=== PATIENT | male | born 1940 | race Caucasian/White ===

== ENCOUNTER → 2017-07-21 07:26 | Outpatient (CLI) | payer MEDICARE, OTHER ==
[~2017-07-21] VITALS: Ht 177.8 cm; Wt 101.4 kg
--- NOTE | ~2017-07-21 | HEMODYNAMI ---
PATIENT:NAIN VALENCIA SR MEDICAL RECORD: [id number] : 44 LOCATION:[facility] ADMISSION DATE: 07/21/17 Generatedon:07/21/201710:25 Patient name: NAIN VALENCIA Patient #: [id number] SSN: : Date of study: 07/21/2017 Page: Of Hemodynamic Procedure Report Patient Data Patient Demographics Procedure consent was obtained First Name: NAIN Gender: Male Last Name: ERIK Suffix: [facility] Initial: JENNIFER : 1940 Patient #: [id number] Age: 77 year(s) Race: Unknown Additional ID: [id number] Contact details Address: [address] [place] [address] State: [place] City: [place] Zip code: [address] Admission Admission Data Admission Date: 07/21/2017 Admission Time: 7:26 Height (in.): 63 BSA: 2.03 (m2) Height (cm.): 160.02 BMI: 39.5 (kg/m2) Weight (lbs.): 223 Weight (kg.): 101.15 Lab Results Lab Result Date: 07/21/2017 Lab Result Time: 0:00 Biochemistry Name Units Result Min Max BUN mg/dl 17 --(---*)-- 7 18 Creatinine mg/dl 1.1 --(--*-)-- 0.6 1.3 CBC Name Units Result Min Max Hemoglobin g/dl 11.8 *-(----)-- 13.5 17.5 Procedure Procedure Types Cath Procedure Diagnostic Procedure LHC LHC w/Coronaries Sedation Charges Moderate Sedation up to 15 minutes Procedure Description Procedure Date Procedure Date: 07/21/2017 Procedure Start Time: 10:05 Procedure End Time: 10:22 Procedure Staff Name Function Shmuel Calderon MD Performing Physician Heather Zaragoza RT Monitor Michelle Cai RN Nurse Elma Bates RT Scrub Procedure Data Cath Procedure Fluoroscopy Diagnostic fluoroscopy Total fluoroscopy Time: 3 time: 3 min min Diagnostic fluoroscopy Total fluoroscopy dose: 707 dose: 707 mGy mGy Contrast Material Contrast Material Type Amount (ml) Isovue 300 59 Entry Location Entry Primary Successful Side Size Upsize Upsize Entry Closure Succes sful Closure Location (Fr) 1 (Fr) 2 (Fr) Remarks Device Remarks Femoral Right 5 Fr Exoseal artery Estimated blood loss: 5 ml Diagnostic catheters Device Type Used For End Catheter Placement MULTIPACK JL 4.0 5Fr Left Coronary catheter Angiography MULTIPACK 3DRC 5Fr Right Coronary catheter Angiography MULTIPACK Pigtail 5 Fr LV Angiography catheter DIAGNOSTIC IM 5Fr Multi-vessel catheter ([id number]) Angiography Procedure Complications No complications Procedure Medications Medication Administration Route Dosage Oxygen NC 2 l/min Lidocaine 2% added to field 20 Heparin Flush Bag added to field 2 bags (1000units/500ml NS) 0.9% NaCl I.V. 100 ml/hr Versed I.V. 1 mg Fentanyl I.V. 50 mcg Versed I.V. 1 mg Fentanyl I.V. 50 mcg Hemodynamics Rest BSA: 2.03 (m2) HGB: 11.8 (g/dl) O2 Consumption: Estimated: 232.22 (ml/min) O2 Co nsumption indexed: Estimated:114.39 (ml/min/m) Heart Rate: 69 (bpm) Pressure Samples Time Site Value (mmHg) Purpose Heart Use Rate(bpm) 10:14 LV 115/6,17 Snapshot 57 10:14 AO 123/45(77) Pullback 54 10:14 LV 129/-4,25 Pullback 54 Gradients Valve Time Site 1 Site 2 Mean SEP/DFP Peak To Heart Use (mmHg) (sec/min) Peak Rate (mmHg) (bpm) Aortic 10:14 LV AO 9 19 6 54 129/-4,25 123/45(77) Calculations Valve P-P Mean Valve Index Valve Source Name Gradient Area Flow (cm2) Aortic 6 9 6 9 Snapshots Pre Cath Intra NCS Post Cath Vital Signs Time Heart Resp SPO2 etCO2 NIBP (mmHg) Rhythm Pain Sedation Rate (ipm) (%) (mmHg) Status Level (bpm) 9:46:50 54 16 97 0 151/66(112) NSR 0 (11) 10(A) , No pain 9:52:01 52 19 97 0 146/64(116) NSR 0 (11) 10(A) , No pain 9:57:12 50 13 100 41.8 135/67(112) NSR 0 (11) 10(A) , No pain 10:01:32 54 15 95 8.9 143/71(115) NSR 0 (11) 10(A) , No pain 10:05:59 59 13 98 26.9 150/70(116) NSR 0 (11) 9(A) , No pain 10:10:23 62 13 92 44.8 139/77(115) NSR 0 (11) 9(A) , No pain 10:14:47 54 13 95 24.6 127/62(114) NSR 0 (11) 9(A) , No pain 10:19:09 54 15 95 24.6 124/63(103) NSR 0 (11) 10(A) , No pain Medications Time Medication Route Dose Verified Delivered Reason Notes Effe ctiveness by by 9:55:59 Oxygen NC 2 Shmuel Buffie used for l/min Kvng Cai RN procedure 9:56:07 Lidocaine 2% added 20ml Shmuel Shmuel for local to vial Kvng Calderon MD anesthetic field 9:56:14 Heparin Flush added 2 Shmuel Shmuel used for Bag to bags Kvng Calderon MD procedure (1000units/500ml field NS) 9:56:22 0.9% NaCl I.V. 100 Shmuel Buffie Per ml/hr Kvng Cai RN physician 10:03:39 Versed I.V. 1 mg Shmuel Buffie for Kvng Cai RN sedation 10:03:46 Fentanyl I.V. 50 Shmuel Buffie for mcg Kvng Cia RN sedation 10:05:49 Versed I.V. 1 mg Shmuel Buffie for Kvng Cai RN sedation 10:05:53 Fentanyl I.V. 50 Shmuel Buffie for mcg Kvng Cai RN sedation Procedure Log Time Note 9:24:20 Patient Height : 63 inches 9:24:27 Patient Weight : 223 lbs 9:24:49 Diagnostic Cath status Elective 9:24:50 Heather Zaragoza RT(R) sent for patient. Start room use. 9:24:52 Time tracking: Regular hours (M-F 7:00 - 5:00) 9:24:57 Plan of Care:Hemodynamics will remain stable., Cardiac rhythm will remain stable., Comfort level will be maintained., Respiratory function will remain adequate., Patient/ family verbilizes understanding of procedure., Procedure tolerated without complication., Recovers from procedure without complications.. 9:25:05 Patient received from Pre/Post Procedure Room to CCL 2 Alert and oriented. Tansferred to table in Supine position. 9:45:25 Warm blankets applied, and raj hugger turned on for patient comfort. 9:45:25 Correct patient and procedure confirmed by team. 9:45:26 Signed procedure consent form obtained from patient. 9:45:27 ECG and BP/O2 sat monitors applied to patient. 9:45:28 Vital chart was started 9:45:31 Baseline sample Acquired. 9:45:35 Rhythm: sinus rhythm 9:45:38 Full Disclosure recording started 9:45:42 H&P Date Dictated: 07/21/2017 Within 30 days and on chart., H&P Addendum completed by physician on day of procedure. (MUST COMPLETE FOR ALL OUTPATIENTS). 9:45:44 Pre-procedure instructions explained to patient. 9:45:44 Pre-op teaching completed and patient verbalized understanding. 9:45:45 Family in waiting room. 9:45:47 Patient NPO since Midnight. 9:45:49 Is the patient allergic to Iodine/contrast media? No. 9:45:50 Was the patient premedicated? No 9:46:16 Lab Result : Creatinine 1.1 mg/dl 9:46:16 Lab Result : BUN 17 mg/dl 9:46:16 Lab Result : Hemoglobin 11.8 g/dl 9:47:32 Is patient on blood thinner?No 9:47:33 Patient diabetic? Yes. 9:47:34 If diabetic: On Metformin? Yes 9:47:38 If on Metformin: Last Dose? 07/19/2017 9:47:41 Previous problem with sedation/anesthesia? No ? 9:47:42 Snore? Yes 9:47:43 Sleep apnea? Yes 9:47:44 Deviated septum? No 9:47:45 Opens mouth fully? Yes 9:47:46 Sticks out tongue? Yes 9:47:48 Airway obstruction? No ? 9:47:54 Dentures? No ? 9:48:15 Pre procedure: right dorsailis pedis pulse 1+ Palpable, but thready & weak; easily obliterated 9:48:17 Pre procedure: left dorsailis pedis pulse 1+ Palpable, but thready & weak; easily obliterated 9:48:20 Patient pain scale 0/10 ?. 9:48:30 IV left forearm D/C'd due to infiltration. 9:48:44 IV started by Michelle Cai RN inleft forearm with a 20 gauge IV catheter with 0.9% NaCl at KVO. 9:48:47 Lab results completed and on chart. 9:50:25 Right groin area was prepped with chlora-prep and draped in sterile fashion 9:50:26 Alarms reviewed by R. N. 9:50:26 Sharps counted by scrub and verified by R.N. 9:55:59 Oxygen 2 l/min NC was administered by Michelle aCi RN; used for procedure; 9:56:07 Lidocaine 2% 20ml vial added to field was administered by Shmuel Calderon MD; for local anesthetic; 9:56:14 Heparin Flush Bag (1000units/500ml NS) 2 bags added to field was administered by Shmuel Calderon MD; used for procedure; 9:56:22 0.9% NaCl 100 ml/hr I.V. was administered by Michelle Cai RN; Per physician; 9:58:59 Baseline sample Acquired. 10:02:14 Physician arrived 10:02:14 --------ALL STOP TIME OUT------ 10:02:15 Final Timeout: patient, procedure, and site verified with staff and physician. All members of the team are in agreement. 10:02:16 Right groin site verified by team. 10:02:19 Physical assessment completed. ASA score P 2 - A patient with mild systemic disease as per Shmuel Calderon MD. 10:02:23 Sedation plan: IV Moderate Sedation Medication:Versed, Fentanyl 10:02:30 Use device set Femoral Dx 10:02:32 ACIST Syringe (77457) opened to sterile field. 10:02:32 Bag Decanter () opened to sterile field. 10:02:33 Medline Cath Pack ([id number]) opened to sterile field. 10:02:33 DIAGNOSTIC WIRE .035 260cm J wire ([id number]) opened to sterile field. 10:02:34 ACIST Hand Control (47783) opened to sterile field. 10:02:35 ACIST Manifold (99920) opened to sterile field. 10:02:35 DIAGNOSTIC Multipack 5Fr catheter set ([id number]) opened to sterile field. 10:02:36 Tegaderm 4 x 4 (1626W) opened to sterile field. 10:02:38 SHEATH Prelude 5Fr 0.035 ([id number]-98-035) opened to sterile field. 10:03:39 Versed 1 mg I.V. was administered by Michelle Cai RN; for sedation; 10:03:46 Fentanyl 50 mcg I.V. was administered by Michelle Cai RN; for sedation; 10:04:55 Procedure started. 10:05:04 Local anesthetic to right femoral artery with Lidocaine 2% by Shmuel Calderon MD.INITIAL ACCESS ONLY 10:05:49 Versed 1 mg I.V. was administered by Michelle Cai RN; for sedation; 10:05:53 Fentanyl 50 mcg I.V. was administered by Michelle Cai RN; for sedation; 10:06:27 A 5 Fr sheath was inserted into the Right Femoral artery 10:06:32 A MULTIPACK JL 4.0 5Fr catheter was advanced over the wire and used for Left Coronary Angiography. 10:06:34 Zero performed for pressure channel P1 10:08:12 LCA angiography performed. 10:08:15 Injector settings: Ml/sec: 3, Volume: 6, 10:09:26 Catheter removed. 10:09:31 A MULTIPACK 3DRC 5Fr catheter was advanced over the wire and used for Right Coronary Angiography. 10:12:44 RCA angiography performed. 10:12:46 Injector settings: Ml/sec: 3, Volume: 6, 10:13:10 Catheter removed. 10:13:23 A MULTIPACK Pigtail 5 Fr catheter was advanced over the wire and used for LV Angiography. 10:14:07 LV hemodynamics recorded. 10:14:08 LV gram done using MARK 10:14:11 Injector settings: Ml/sec: 5, Volume: 15, 10:14:23 EF : 50 % 10:16:11 Catheter removed. 10:16:12 EXOSEAL 5Fr (EX500) opened to sterile field. 10:17:20 A DIAGNOSTIC IM 5Fr catheter (191422V) was advanced over the wire and used for Multi-vessel Angiography. 10:17:44 FOSTER angiography performed. 10:17:49 Injector settings: Ml/sec: 3, Volume: 6, 10:19:05 Catheter removed. 10:19:36 Sheath removed intact; hemostasis achieved with Exoseal to the Right Femoral artery. 10:20:12 Procedure ended.(Physican Out) 10:20:55 Fluoroscopy time 03.00 minutes. 10:21:11 Fluoroscopy dose: 707 mGy 10:21:11 Flurop Dose total: 707 10:21:38 Contrast amount:Isovue 300 59ml. 10:21:39 Sharps counted by scrub and verified by R.N. 10:21:42 Insertion/operative site no bleeding no hematoma. 10:21:46 Post-op/insertion site Right Femoral artery dressed using a 4 x 4 and Tegaderm. 10:21:49 Post right femoral artery:stable 10:21:50 Post Procedure Pulses reassessed and unchanged 10:21:53 Post procedure rhythm: unchanged. 10:21:56 Estimated blood loss: 5 ml 10:21:57 Post procedure instruction explained to patient.Patient verbalizes understanding. 10:21:58 Patient needs reinforcement of post procedure teaching. 10:22:17 Procedure type changed to Cath procedure, Diagnostic procedure, LHC, LHC w/Coronaries, Sedation Charges, Moderate Sedation up to 15 minutes 10:22:18 Procedure and supply charges have been captured, reviewed, submitted and are correct. 10:22:22 Procedure Complication : No complications 10:22:24 Vital chart was stopped 10:22:26 See physician's report for complete and final results. 10:22:29 Report given to Pre/Post Procedure Room. 10:22:31 Patient transfered to Pre/Post Procedure Room with Stretcher. 10:22:32 Procedure Stopped 10:22:36 Procedure ended. 10:22:36 Full Disclosure recording stopped 10:22:39 End room use (Document Last) Device Usage Item Name Manufacture Quantity Catalog Number Hospital Part Current M inimal Lot# / Charge Number Stock Stock Serial# Code ACIST Syringe Acist 1 70978 199869 975197 971488 2 0 (20906) [employer] Bag Decanter Microtek 1 408270 33800 901401 5 () Medical Inc. Medline Cath Cardinal 1 [id number] 484208 70531 707245 5 Referral.IM ([id number]) DIAGNOSTIC WIRE St Amrit 1 541254 468535 754131 169892 3 0 .035 260cm J wire (016394) ACIST Hand Acist 1 71967 542585 532060 340027 5 Control (52078) Medical Systems Inc ACIST Manifold Acist 1 65570 009822 352232 584991 5 (02656) Medical [employer] Inc DIAGNOSTIC Cardinal 1 [id number] 712543 61461 191341 3 0 Multipack 5Fr Health catheter set ([id number]) Tegaderm 4 x 4 3M 1 1626W 960754 374075 527091 5 (1626W) SHEATH Prelude Merit 1 [id number] 645012 773401 150522 5 5Fr 0.035 Medical ([id number]-[id number]) MULTIPACK JL Cardinal 1 [id number] 5 4.0 5Fr Health catheter MULTIPACK 3DRC Cardinal 1 287340 5 5Fr catheter Health MULTIPACK Cardinal 1 [id number] 5 Pigtail 5 Fr Health catheter EXOSEAL 5Fr Cardinal 1 EX500 632093 040848 704419 1 0 (EX500) Health DIAGNOSTIC IM Cardinal 1 [id number] 994912 561263 642377 5 5Fr catheter Health ([id number]) Signature Audit [place] Stage Time Signature Unsigned Intra-Procedure 07/21/2017 Heather Zaragoza 10:25:40 AM RT(R) Signatures Monitor : Heather Zaragoza RT Signature : Date : Time : [place] [address] [place] [address]
[~2017-07-21 07:26] MED LIST: ACTOS30 MG PO; BAYER CHEWABLE81 MG PO; CELEXA20 MG PO; CENTRUM SILVER1 TA1 PO; FISH OIL 1,2001 CAP PO; FUROSEMIDE20 MG PO; GLIMEPIRIDE4 MG PO; GLUCOPHAGE1000 MG PO; JANUVIA100 MG PO; KLOR-CON 1010 MEQ PO; LIPITOR20 MG PO; LOPRESSOR25 MG PO; MAGNESIUM OXID250 MG PO; MERIBIN5 MG PO; PLAVIX75 MG PO; PRINIVIL20 MG PO; TOPAMAX50 MG PO; VITAMIN D31000 UNI2 PO
[2017-07-21 08:02] VITALS: BP 142/50; Ht 177.8 cm; Wt 101.4 kg
[2017-07-21 08:07] LABS: BASOPHILS 0.3 % (0-2); EOSINOPHILS 3.3 % (0-7); HEMOGLOBIN 11.8 g/dL (13.5-17.5); IMMATURE GRANULOCYTES 0.1 % (0-5); LYMPHOCYTES 22.9 % (15-50); MCH 29.1 pg (26.0-34.0); MCHC 32.8 g/dL (31.0-37.0); MCV 88.9 fL (80.0-100.0); MEAN PLATELET VOLUME 9.8 fL (7.4-10.4); MONOCYTES 9.2 % (2-11); NEUTROPHILS 64.2 % (40-80); PLATELET COUNT 260 10x3/uL (130-400); RBC 4.05 10x6/uL (4.20-6.10); RDW 13.8 % (11.5-14.5); WBC 7.9 10x3/uL (4.8-10.8)
[2017-07-21 08:22] LABS: ANION GAP 12.4 mmol/L (8-16); CALCIUM 8.9 mg/dL (8.5-10.1); CARBON DIOXIDE 27.8 mmol/L (21.0-32.0); CREATININE - SERUM 1.1 mg/dL (0.6-1.3); POTASSIUM - SERUM 4.2 mmol/L (3.5-5.1)
== END | disposition home or self-care (01) ==
LOC: D.CATH 07:26
PROVIDERS: Internal Medicine Cardiovascular Disease
DX: I25.119 Atherosclerotic heart disease of native coronary artery with unspecified angina pectoris (principal); Z01.812 Encounter for preprocedural laboratory examination

== ENCOUNTER 2017-07-29 13:00 | Inpatient (IN) | payer MEDICARE, OTHER ==
[~2017-07-29] VITALS: Ht 177.8 cm; Wt 100.7 kg
--- NOTE | ~2017-07-29 | CN ---
PATIENT NAME:NAIN VALENCIA MEDICAL RECORD: [id number] : 44 LOCATION:[facility] ADMIT DATE: 08/02/17 ACCOUNT: [id number] CONSULTING PHYSICIAN: JAMESON WALKER MD REFERRING PHYSICIAN: DUTCH WALL MD DATE OF CONSULTATION: 08/05/2017 CARDIOLOGY CONSULTATION DIAGNOSES: 1. Unstable angina. 2. Coronary artery disease. 3. Status post coronary bypass graft surgery, FOSTER to the LAD, vein graft to the RCA. 4. Hyperlipidemia. 5. Hypertension. HISTORY OF PRESENT ILLNESS: Mr. Valencia presents with unstable anginal symptomatology, found to have severe 3-vessel coronary artery disease, underwent successful off pump FOSTER to the LAD and vein graft to the RCA. He has done well postoperatively, no recurrent anginal symptomatology. At this time, his heart rate is in the 80s, sinus rhythm with no dysrhythmias. Systolic blood pressure is in the 100-120 range. Currently, his medical regimen includes Plavix, Lasix, metoprolol. Preoperatively, he was on lisinopril, fish oil, and Lipitor as well as his diabetic medications have as well been restarted. PHYSICAL EXAMINATION: GENERAL APPEARANCE: Well-nourished, well-developed, appears stated age. Level of distress, comfortable. PSYCHIATRIC: Mental status, alert, normal affect. Orientation, oriented to time, place and person. EYES: Lids and conjunctiva, noninjected. No discharge, no pallor. ENT: Lips, teeth, gums, normal dentition. Oropharynx, no cyanosis, no pallor. NECK: Carotid arteries, bilateral normal upstroke, no bruits, no thrills. JUGULAR VEINS: No jugular venous pressure or distention. CERVICAL LYMPH NODES: Nontender, nonenlarged. THYROID: Not enlarged. Nontender. No nodules. LUNGS: Respiratory effort, unlabored. CHEST: Normal curvature. No thoracic deformity. No chest wall tenderness. Percussion, resonant. Auscultation, clear. No wheezes, no rales, no rhonchi. CARDIOVASCULAR: Precordial exam, nondisplaced. No heaves or pericardial thrills. Rate and rhythm, regular. Heart sounds, normal S1, normal S2. No S3, no gallop, no rub. Systolic murmur, not heard. Diastolic murmur, not heard. EXTREMITIES: No cyanosis, no edema. Peripheral pulses, full and equal in all extremities, except as noted. No bruits appreciated. ABDOMEN: Soft, nondistended. Normal aorta. No bruit. Nontender. No masses. Liver, nontender, no hepatomegaly. Spleen, nontender, no splenomegaly. MUSCULOSKELETAL: No joint tenderness. No joint swelling. No erythema. NEUROLOGICAL: Normal gait, normal strength, normal tone. SKIN: Warm and dry. OVERALL IMPRESSION: Stable postop CABG. At this time, I would agree with favoring a beta roula over the low-dose lisinopril that he was previously on. Would continue this at discharge. Restarting the Lipitor and fish oil at discharge as well. CONSULT REPORT [id number] NAIN VALENCIA TRANSINT:[id number] Voice Confirmation ID: [id number] DOCUMENT ID: [id number] JAMESON WALKER MD at 1403 CC: [id number] DICTATION DATE: 08/05/17 122 [address] COMPLIANCE MANAGER: 08/05/17 1247 DIS IN 08/08/17 [place] [address] [place] [address]
--- NOTE | ~2017-07-29 | HP ---
PATIENT: NAIN VALENCIA SR MEDICAL RECORD: [id number] ACCOUNT: [id number] LOCATION:[facility] : 42 ADMISSION DATE: 08/02/17 HISTORY AND PHYSICAL EXAMINATION NAIN Mart SR (77yo, M) ID# [id number]. Date/Time07/29/2017 11:87OVGBP62/14/194[facility] Dept.[facility] ClinicProviderDUTCH WALL MDInsuranceMed Primary[place] Insurance # : [id number] Referring Provider Name : JENNIFER QUINTERO Employer Name : UNKNOWN Med Secondary: [employer] Insurance # : [id number] Policy/Group # : [id number] Referring Provider Name : JENNIFER QUINTERO Prescription: [employer] - This member could not be found in the payer's files. Please verify coverage and all member demographic information. Chief Complaint Coronary artery disease referral for CABG Patient's Care Team Referring Provider (): JENNIFER QUINTERO: [facility], [address] [place] [address] [phone], , School Health Assistant: SANAZ CALDERON MD: [address] [place] [phone], , Patient's Pharmacies [facility]): [address] [facility] [address], , Vitals BP:120/60 sitting L arm 07/29/2017 11:40 am 120/70 sitting R arm 07/29/2017 11:41 amBP Cuff Size:adult 07/29/2017 11:40 am adult 07/29/2017 11:41 amHR:52,reg 07/29/2017 11:42 amHt:5 ft 10 in 07/29/2017 11:42 amWt:223 lbs 07/29/2017 11:42 amNotes:hx of cad that has been being followed. Had a cousin who had an DE recently which prompted him to follow up w Dr Calderon. 07/29/2017 11:44 amBMI:32 07/29/2017 11:42 amAllergies Reviewed Allergies NKDAMedications Reviewed Medications Actos 45 mg tablet Take 1 tablet(s) every day by oral route.07/28/17 enteredErika Watkinsaspirin 81MG DAILY07/28/17 enteredErika Watkinscitalopram 20 mg tablet Take 1 tablet(s) every day by oral route.07/28/17 enteredErika Watkinsglimepiride 4 mg tablet Take 1 tablet(s) every day by oral route.07/28/17 enteredErika WatkinshydroCHLOROthiazide 25 mg tablet Take 1 tablet(s) every day by oral route.07/28/17 enteredErika WatkinsJanuvia 100 mg tablet Take 1 tablet(s) every day by oral route.07/28/17 enteredErika Watkinslisinopril 5MG PO DAILY07/28/17 enteredErika WatkinsmetFORMIN 1000MG BID07/28/17 enteredErika Watkinssimvastatin 40 mg tablet Take 1 tablet(s) every day by oral route.07/28/17 enteredErika Watkinstopiramate 50 MG DAILY07/28/17 enteredErika WatkinsProblems Reviewed Problems Diabetes mellitus HISTORY AND PHYSICAL [id number] NAIN VALENCIA SR Hyperlipidemia Hypertensive disorder Coronary arteriosclerosis Chest pain Family History Reviewed Family History Father- Heart diseaseSocial History Reviewed Social History Cardiology Family history of heart disease?: Y Smoking Status: Never smoker High Cholesterol: Y Diabetes: Y Surgical History Reviewed Surgical History Past Medical History Reviewed Past Medical History Chest Pain: Y Depression: Y Diabetes: Y Hyperlipidemia: Y Hypertension: Y Joint Pain or Swelling: Y Documents for Discussion N/A Screening None recorded. HPI 77-year-old male with history of single-vessel coronary disease by heart catheter 6 years ago, recently had family members with acute myocardial infarction, retur n to cardiology, reports that he has been asymptomatic early than other fatigue. He specifically denies angina, palpitations, dyspnea, syncope or near syncope. Reviewed cardiac cath with proximal LAD and ostial right coronary stenosis. Risk factors diabetes since he was 48, hypertension and hyperlipidemia. ROS ROS as noted in the [facility] Physical Exam Patient is a 77-year-old male. as reviewed in the chart with the patient He reports that he is in need of eye surgery No anticoagulants other than aspirin and no history of bleeding problems Assessment / Plan 1. Coronary arteriosclerosis I25.10: Atherosclerotic heart disease of [place] coronary artery without angina pectoris Patient Instructions PAT and carotids Discussion Notes we discussed the risks without surgery in an asymptomatic diabetic patient with normal to near normal left ventricular function. His anatomy is very worrisome HISTORY AND PHYSICAL [id number] NAIN VALENCIA SR particularly severe proximal LAD and ostial severe right coronary artery. We also discussed with the patient and his wif e the rationale for coronary bypass graft, the alternatives, benefits, and the risks, including but not limited to bleeding, transfusion, infection, reoperation, graft closure, heart attack, stroke, kidney failure, and rarely . They wish to proceed with coronary bypass graft and give consent Plan off-pump bypass surgery 2 DUTCH WALL MD at 0835 CC: [id number] DICTATION DATE: 07/29/17 1100 TEST ARCHITECT: HOWARD 07/29/17 1502 PRE IN [facility] [address] [place] [address]
--- NOTE | ~2017-07-29 | OP ---
PATIENT NAME: NAIN VALENCIA SR MEDICAL RECORD: [id number] :44 LOCATION:D.CVI DJoselineCV02 ADMISSION DATE:08/02/17 SURGEON: SRAVAN WALL MD DATE OF OPERATION: 08/02/2017 SURGEON: Sravan Wall MD MASKING MACHINE OPERATOR: JULIO CESAR Sinclair OPERATION PERFORMED: 1. Off pump coronary artery bypass graft times 2 (left internal mammary artery to LAD and reverse saphenous vein graft from aorta to posterior descending artery). 2. Stapling of left upper lobe bleb. PREOPERATIVE DIAGNOSIS: Coronary artery disease. POSTOPERATIVE DIAGNOSIS: Coronary artery disease. ANESTHESIA: General endotracheal anesthesia. ESTIMATED BLOOD LOSS: 500 cc with Cell Saver retransfusion. COMPLICATIONS: None. SPECIMENS: None. CONDITION: Stable. DISPOSITION: CV ICU. OPERATIVE FINDINGS: 1. Transesophageal echocardiography revealed 1+ mitral regurgitation prior to coronary bypass graft, resolved to none after coronary artery bypass graft. 2. Significant bradycardia in the 40s. 3. Atrial ventricular pacing after coronary bypass graft and then to the ICU on low dose dopamine not paced, heart rate in the low 60s. 4. LAD was a 2.0-mm vessel deep in the epicardial fat, left internal mammary artery was a good conduit. 5. Good quality greater saphenous vein with 1 mid vessel varicosity. 6. Posterior descending artery, 1.5 mm vessel, the right coronary was calcified throughout. 7. A 1 cm bleb with diffuse bullous emphysema of the left upper lobe. INDICATION: Coronary artery disease. DESCRIPTION OF PROCEDURE: The patient was brought to the operating suite. General anesthesia was obtained, the patient was prepped and draped. The greater saphenous vein harvest of the right lower extremity was utilizing bridging incisions. Segments were clipped. The vessel was ligated proximally and distally removed. The leg was made hemostatic at the conclusion of the case, was closed in 2 layers. Median sternotomy incision was made. The subcutaneous tissue was divided with electrocautery. The sternum was divided with a saw. Left hemisternum was OPERATIVE REPORT [id number] NAIN VALENCIA elevated. The left pleural cavity was entered. Left mammary was taken down as a pedicle graft. The sternal retractor was placed. Pericardium was opened. Heparin was given. The heart was elevated using the off pump retraction system, posterior ascending artery isolated. End-to-side anastomosis performed then proximal anastomosis using the heartstring device. Then, the left internal mammary to LAD anastomosis. After these were completed, the patient was stable. Protamine was given. The graft lay appropriately. Atrial and ventricular pacing wires were placed and the patient was paced. Drains were placed in a mediastinum left pleural cavity. Pericardial fat was loosely reapproximated. The internal mammary harvest site was hemostatic. The left lung bleb was stapled. Some adhesions were taken down. A drain was placed laterally on the left. The chest was closed with wires. Fascia was closed, subcutaneous tissue was closed, skin was closed. Dermabond was placed. The needle, sponge, instruments counts were correct. The patient was then taken to ICU in stable condition. TRANSINT:[id number] Voice Confirmation ID: [id number] DOCUMENT ID: [id number] SRAVAN WALL MD at 0751 CC: [id number] DICTATION DATE: 08/02/17 174 UTILITY DIVISION PROJECT MANAGER: 08/02/17 1844 ADM IN [place] [id number] [place] [id number]
--- NOTE | ~2017-07-29 | TEE ---
PATIENT:NAIN VALENCIA MEDICAL RECORD: [id number] LOCATION:[place] [address] AGE OF PATIENT: 77 ADMISSION DATE: 08/02/17 SEX: M REFERRING PHYSICIAN: INTERPRETING PHYSICIAN: JAMESON WALKER MD TRANSESOPHAGEAL ECHOCARDIOGRAM Date: 08/02/17 EVELYN CHARGE Y INDICATIONS: CABG PREMEDICATIONS: PATIENT'S RESPONSE PROCEDURE DOPPLER MEASUREMENTS: LVIT LA PA RA LVOT RVOT Asc. Ao AV Gradient Peak AV Mean AV Area MV Gradient Peak MV Mean MV Area INTERPRETATION: Doppler: 2-D: EF 50/55 COLOR FLOW DOPPLER MILD + MR,TRACE TR NORMAL SALINE STUDY: MISCELLANOUS: DIAGNOSIS: PLAN: Cable Mock Up Assembler:Higinio Calderon Insurance Business Analyst: Higinio LAINEZ COMMENTS: [facility] DATE OF SERVICE: 08/02/2017 Transesophageal echo evaluation of valvular structures during bypass surgery. FINDINGS: 1. Left ventricular chamber size is within normal limits. Left ventricular systolic function is normal. Overall ejection fraction estimated at 55%. 2. Left atrium, right atrium, and right ventricle chamber size is within normal limits. TRANSESOPHAGEAL ECHOCARDIOGRAM REPORT [id number] NAIN VALENCIA 3. Valvular structures have normal structure and motion. 4. Doppler interrogation only reveals mild mitral regurgitation, no other valvular insufficiency or stenosis. 5. No evidence of pericardial effusion or left ventricular thrombus. TRANSINT:[id number] Voice Confirmation ID: [id number] DOCUMENT ID: [id number] at 1711 CC: [id number] DICTATION DATE: 08/02/172113 INSTRUMENT REPAIRER HELPER: 08/03/17 0122 ADM IN [place] [id number] [place] [address]
[~2017-07-29 13:00] MED LIST changes: -CENTRUM SILVER1 TA1 PO; -FUROSEMIDE20 MG PO; -KLOR-CON 1010 MEQ PO; -LOPRESSOR25 MG PO; -PLAVIX75 MG PO
[2017-07-29 14:45] LABS: BASOPHILS 0.3 % (0-2); EOSINOPHILS 3.5 % (0-7); HEMATOCRIT 37.9 % (42.0-54.0); HEMOGLOBIN 12.4 g/dL (13.5-17.5); IMMATURE GRANULOCYTES 0.1 % (0-5); LYMPHOCYTES 28.1 % (15-50); MCH 29.2 pg (26.0-34.0); MCHC 32.7 g/dL (31.0-37.0); MCV 89.4 fL (80.0-100.0); MEAN PLATELET VOLUME 10.1 fL (7.4-10.4); MONOCYTES 10.2 % (2-11); NEUTROPHILS 57.8 % (40-80); PLATELET COUNT 266 10x3/uL (130-400); RBC 4.24 10x6/uL (4.20-6.10); RDW 13.9 % (11.5-14.5); WBC 7.9 10x3/uL (4.8-10.8)
[2017-07-29 15:03] LABS: APTT 45.8 SECONDS (22.8-39.4); INR 0.9 (0.85-1.17); PROTIME 11.8 SECONDS (11.6-15.0)
[2017-07-29 15:08] LABS: ALBUMIN 3.7 g/dL (3.4-5.0); ANION GAP 11.8 mmol/L (8-16); APPEARANCE CLEAR (CLEAR); BILIRUBIN NEGATIVE (NEGATIVE); BILIRUBIN - TOTAL 0.21 mg/dL (0.2-1.3); CALCIUM 9.1 mg/dL (8.5-10.1); CARBON DIOXIDE 30.3 mmol/L (21.0-32.0); COLOR YELLOW (YELLOW); CREATININE - SERUM 1.1 mg/dL (0.6-1.3); GLUCOSE NEGATIVE (NEGATIVE); KETONE NEGATIVE (NEGATIVE); NITRITE NEGATIVE (NEGATIVE); POTASSIUM - SERUM 4.1 mmol/L (3.5-5.1); PROTEIN TRACE mg/dL (NEGATIVE); PROTEIN - SERUM 7.1 g/dL (6.4-8.2); SPECIFIC GRAVITY 1.015 (1.005-1.020); T4 THYROXIN - FREE 0.83 ng/dL (0.76-1.46); THYROID STIMULATING HORMONE 2.59 uIU/mL (0.36-3.74); URIC ACID 5.9 mg/dL (2.6-7.2); UROBILINOGEN NORMAL (NORMAL)
[2017-08-01 19:00] VITALS: BP 128/51
[2017-08-02] VITALS (28 sets, daily range): BP systolic 115–143; BP diastolic 46–61; BMI 32.0; BMI 33.5
[2017-08-02] MEDS ORDERED: CENTRUM SILVER1 TA1 PO (09:22)
[2017-08-02 16:16] LABS: HEMATOCRIT 26.3 % (42.0-54.0); HEMOGLOBIN 8.6 g/dL (13.5-17.5); MCH 29.2 pg (26.0-34.0); MCHC 32.7 g/dL (31.0-37.0); MCV 89.2 fL (80.0-100.0); MEAN PLATELET VOLUME 10.3 fL (7.4-10.4); RBC 2.95 10x6/uL (4.20-6.10); RDW 13.7 % (11.5-14.5); WBC 6.9 10x3/uL (4.8-10.8)
[2017-08-02 16:32] LABS: INR 1.61 (0.85-1.17); PROTIME 18.6 SECONDS (11.6-15.0)
[2017-08-02 16:34] LABS: APTT 141.3 SECONDS (22.8-39.4)
[2017-08-02 16:37] LABS: CALC OSMOLALITY 290 mosm/kg (275-300); CARBON DIOXIDE 22.7 mmol/L (21.0-32.0); CHLORIDE - SERUM 106 mmol/L (98-107); CREATININE - SERUM 0.8 mg/dL (0.6-1.3); GLUCOSE 259 mg/dL (74-106); POTASSIUM - SERUM 3.6 mmol/L (3.5-5.1); SODIUM 142 mmol/L (136-145); UREA NITROGEN 11 mg/dL (7-18); eGFR NON AFRICAN AMERICAN > 90 mL/min (90-120)
[2017-08-02 16:38] LABS: CALCIUM 6.2 mg/dL (8.5-10.1)
[2017-08-03] VITALS (48 sets, daily range): BP systolic 102–148; BP diastolic 41–91; Ht 177.8 cm; Wt 100.7 kg
[2017-08-03 06:49] LABS: ALBUMIN 2.4 g/dL (3.4-5.0); ANION GAP 13.1 mmol/L (8-16); BILIRUBIN - TOTAL 0.3 mg/dL (0.2-1.3); CALCIUM 7.4 mg/dL (8.5-10.1); CARBON DIOXIDE 24.9 mmol/L (21.0-32.0); CREATININE - SERUM 1.2 mg/dL (0.6-1.3); PROTEIN - SERUM 5.4 g/dL (6.4-8.2)
[2017-08-03 07:15] LABS: HEMATOCRIT 33.8 % (42.0-54.0); HEMOGLOBIN 11.1 g/dL (13.5-17.5); MCH 29.2 pg (26.0-34.0); MCHC 32.8 g/dL (31.0-37.0); MCV 88.9 fL (80.0-100.0); MEAN PLATELET VOLUME 10.8 fL (7.4-10.4); RBC 3.8 10x6/uL (4.20-6.10); RDW 13.8 % (11.5-14.5); WBC 20.8 10x3/uL (4.8-10.8)
[2017-08-04] VITALS (22 sets, daily range): BP systolic 110–147; BP diastolic 36–87
[2017-08-04 06:16] LABS: MCH 29.3 pg (26.0-34.0); MCHC 33.3 g/dL (31.0-37.0); MCV 87.8 fL (80.0-100.0); MEAN PLATELET VOLUME 10.6 fL (7.4-10.4); WBC 17.7 10x3/uL (4.8-10.8)
[2017-08-04 06:52] LABS: HEMATOCRIT 25.8 % (42.0-54.0); HEMOGLOBIN 8.6 g/dL (13.5-17.5); RBC 2.94 10x6/uL (4.20-6.10)
[2017-08-04 07:27] LABS: ALBUMIN 2.4 g/dL (3.4-5.0); ALKALINE PHOSPHATASE 64 U/L (46-116); ALT (SGPT) 17 U/L (10-68); CALC OSMOLALITY 271 mosm/kg (275-300); CALCIUM 7.5 mg/dL (8.5-10.1); CARBON DIOXIDE 26.7 mmol/L (21.0-32.0); CHLORIDE - SERUM 101 mmol/L (98-107); POTASSIUM - SERUM 3.8 mmol/L (3.5-5.1); PROTEIN - SERUM 5.3 g/dL (6.4-8.2); SODIUM 134 mmol/L (136-145); UREA NITROGEN 21 mg/dL (7-18); eGFR NON AFRICAN AMERICAN 77 mL/min (90-120)
[2017-08-04 07:33] LABS: GLUCOSE 119 mg/dL (74-106)
[2017-08-05] VITALS (23 sets, daily range): BP systolic 111–143; BP diastolic 30–94
[2017-08-05 05:47] LABS: HEMATOCRIT 24.9 % (42.0-54.0); HEMOGLOBIN 8.1 g/dL (13.5-17.5); MCH 28.5 pg (26.0-34.0); MCHC 32.5 g/dL (31.0-37.0); MCV 87.7 fL (80.0-100.0); MEAN PLATELET VOLUME 10.8 fL (7.4-10.4); RBC 2.84 10x6/uL (4.20-6.10); RDW 13.7 % (11.5-14.5); WBC 15.2 10x3/uL (4.8-10.8)
[2017-08-05 06:26] LABS: ALBUMIN 2.3 g/dL (3.4-5.0); ANION GAP 10.6 mmol/L (8-16); BILIRUBIN - TOTAL 0.5 mg/dL (0.2-1.3); CALCIUM 7.8 mg/dL (8.5-10.1); CARBON DIOXIDE 26.4 mmol/L (21.0-32.0); CREATININE - SERUM 1.1 mg/dL (0.6-1.3); PROTEIN - SERUM 5.5 g/dL (6.4-8.2)
[2017-08-06] VITALS (23 sets, daily range): BP systolic 96–147; BP diastolic 35–94
[2017-08-06 05:27] LABS: HEMATOCRIT 24.5 % (42.0-54.0); HEMOGLOBIN 8.1 g/dL (13.5-17.5); MCH 28.6 pg (26.0-34.0); MCHC 33.1 g/dL (31.0-37.0); MCV 86.6 fL (80.0-100.0); MEAN PLATELET VOLUME 10.7 fL (7.4-10.4); RBC 2.83 10x6/uL (4.20-6.10); RDW 13.6 % (11.5-14.5); WBC 14.3 10x3/uL (4.8-10.8)
[2017-08-06 06:02] LABS: ALBUMIN 2.3 g/dL (3.4-5.0); ALKALINE PHOSPHATASE 68 U/L (46-116); ALT (SGPT) 17 U/L (10-68); CALC OSMOLALITY 274 mosm/kg (275-300); CALCIUM 7.9 mg/dL (8.5-10.1); CARBON DIOXIDE 27.4 mmol/L (21.0-32.0); CHLORIDE - SERUM 100 mmol/L (98-107); GLUCOSE 173 mg/dL (74-106); POTASSIUM - SERUM 4.1 mmol/L (3.5-5.1); PROTEIN - SERUM 5.6 g/dL (6.4-8.2); SODIUM 134 mmol/L (136-145); UREA NITROGEN 20 mg/dL (7-18); eGFR NON AFRICAN AMERICAN 77 mL/min (90-120)
[2017-08-07] VITALS (25 sets, daily range): BP systolic 95–159; BP diastolic 43–76
[2017-08-07 05:41] LABS: HEMOGLOBIN 8.5 g/dL (13.5-17.5); MCH 29.5 pg (26.0-34.0); MCV 86.8 fL (80.0-100.0); MEAN PLATELET VOLUME 10.5 fL (7.4-10.4); RBC 2.88 10x6/uL (4.20-6.10); RDW 13.4 % (11.5-14.5); WBC 13.8 10x3/uL (4.8-10.8)
[2017-08-07 05:51] LABS: ALBUMIN 2.2 g/dL (3.4-5.0); ALKALINE PHOSPHATASE 72 U/L (46-116); ALT (SGPT) 18 U/L (10-68); CALC OSMOLALITY 278 mosm/kg (275-300); CALCIUM 7.9 mg/dL (8.5-10.1); CHLORIDE - SERUM 100 mmol/L (98-107); GLUCOSE 166 mg/dL (74-106); POTASSIUM - SERUM 3.9 mmol/L (3.5-5.1); PROTEIN - SERUM 5.7 g/dL (6.4-8.2); SODIUM 136 mmol/L (136-145); UREA NITROGEN 21 mg/dL (7-18); eGFR NON AFRICAN AMERICAN 77 mL/min (90-120)
[2017-08-08] VITALS (13 sets, daily range): BP systolic 112–159; BP diastolic 45–85
[2017-08-08] MEDS ORDERED: LOPRESSOR25 MG PO (10:12)
[2017-08-08] MEDS ORDERED: PLAVIX75 MG PO (10:12)
[2017-08-08] MEDS ORDERED: KLOR-CON 1010 MEQ PO (10:14)
[2017-08-08] MEDS ORDERED: FUROSEMIDE20 MG PO (10:14)
[2017-08-08] MEDS ORDERED: TOPAMAX50 MG PO (10:18)
== END 2017-08-08 12:44 | disposition home or self-care (01) | DRG 236 ==
LOC: D.SDCHOLD 14:00 → D.CVICU 08-02 09:09 → D.SDCHOLD 08-02 11:30 → D.CVICU 08-02 15:08
PROVIDERS: Thoracic Surgery (Cardiothoracic Vascular Surgery)
PROC: 021009W Bypass Coronary Artery, One Artery from Aorta with Autologous Venous Tissue, Open Approach (ICD-10-PCS; 2017-08-02)
PROC: 0BQG0ZZ Repair Left Upper Lung Lobe, Open Approach (ICD-10-PCS; 2017-08-02)
PROC: 02100Z9 Bypass Coronary Artery, One Artery from Left Internal Mammary, Open Approach (ICD-10-PCS; principal; 2017-08-02 11:30)
DX: I25.10 Atherosclerotic heart disease of native coronary artery without angina pectoris (principal); J43.0 Unilateral pulmonary emphysema [MacLeod's syndrome]; E11.9 Type 2 diabetes mellitus without complications; I10 Essential (primary) hypertension; E78.5 Hyperlipidemia, unspecified; R41.0 Disorientation, unspecified

== ENCOUNTER 2017-08-11 16:34 | Inpatient (IN) | payer MEDICARE, OTHER ==
[~2017-08-11] VITALS: Ht 177.8 cm; Wt 100.0 kg
--- NOTE | ~2017-08-11 | HEMODYNAMI ---
PATIENT:NAIN VALENCIA SR MEDICAL RECORD: [id number] : 44 [facility]ATION[facility] [id number] ADMISSION DATE: 08/11/17 Generatedon:08/12/20179:12 Patient name: NAIN VALENCIA Patient #: [id number] SSN: : 1940 Date of study: 08/12/2017 Page: Of Hemodynamic Procedure Report Patient Data Patient Demographics Procedure consent was obtained First Name: NAIN Gender: Male Last Name: ERIK Suffix: [facility] Initial: JENNIFER : 1940 Patient #: [id number] Age: 77 year(s) Race: Unknown Additional ID: [id number] Contact details [address]: [address] [place] [address] State: [place] City: [place] Zip code: [address] Past Medical History Allergies: No known allergies Admission Admission Data Admission Date: 08/11/2017 Admission Time: 17:03 Room #: D.2115 Height (in.): 69.69 BSA: 2.17 (m2) Height (cm.): 177 BMI: 31.92 (kg/m2) Weight (lbs.): 220.46 Weight (kg.): 100 Procedure Procedure Types Cath Procedure Diagnostic Procedure EVELYN Procedure Description Procedure Date Procedure Date: 08/12/2017 Procedure Start Time: 8:31 Procedure Staff Name Function Waldemar Cornejo MD Additional personnel Elma Bates RT Scrub Dalton Rubin Business Coordinator Dieter Melendez MD Performing Physician Gilles White RN Nurse Yelena Forte RT Monitor Procedure Data Cath Procedure Estimated blood loss: 0 ml Procedure Complications No complications Procedure Medications Medication Administration Route Dosage 0.9% NaCl I.V. 75 ml/hr Oxygen etCO2 Nasal cannula 5 l/min Hurricaine [place] P.O. 1 Sprays Refer to Anesthesia Notes for Sedation Medications Hemodynamics Rest O2 Consumption: Estimated: 246.59 (ml/min) O2 Consumption indexed: Estimated:113 .64 (ml/min/m) Heart Rate: 67 (bpm) Snapshots Pre Cath Intra NCS Post Cath Vital Signs Time Heart Resp SPO2 etCO2 NIBP (mmHg) Rhythm Pain Sedation Rate (ipm) (%) (mmHg) Status Level (bpm) 8:35:48 65 19 94 12.7 136/70(110) NSR 0 (11) 10(A) , No pain 8:41:09 69 25 89 18.8 123/63(97) NSR 0 (11) 8(A) , No pain 8:45:50 65 16 31 24.8 99/42(53) NSR 0 (11) 8(A) , No pain 8:51:54 65 21 100 0.7 135/67(112) NSR 0 (11) 8(A) , No pain 8:57:14 65 21 100 0 145/70(108) NSR 0 (11) 8(A) , No pain 8:58:22 72 23 100 0 119/66(95) NSR 0 (11) 9(A) , No pain Medications Time Medication Route Dose Verified Delivered Reason Notes Effective ness by by 8:37:27 0.9% NaCl I.V. 75 Gilles Gilles Per ml/hr Christopher White physician RN RN 8:37:43 Oxygen etCO2 5 Gilles Gilles Per Nasal l/min Christopher White physician cannula RN RN 8:38:06 Hurricaine P.O. 1 Gilles Gilles used for Acton Sprays Christopher White yarder operator RN 8:41:21 Refer to Gilles Gilles for Anesthesia Christopher White sedation Notes for RN RN Sedation Medications Procedure Log Time Note 8:32:10 Patient Height : 69.69 inches 8:32:13 Patient Weight : 220.46 lbs 8:33:13 Diagnostic Cath status Elective 8:33:17 Gilles White RN sent for patient. Start room use. 8:33:18 Time tracking: Regular hours (M-F 7:00 - 5:00) 8:33:23 Plan of Care:Hemodynamics will remain stable., Cardiac rhythm will remain stable., Comfort level will be maintained., Respiratory function will remain adequate., Patient/ family verbilizes understanding of procedure., Procedure tolerated without complication., Recovers from procedure without complications.. 8:33:50 Patient received from Med II to [facility] 1 Alert and oriented. Tansferred to table in Supine position. 8:33:51 Warm blankets applied, and raj hugger turned on for patient comfort. 8:33:52 Correct patient and procedure confirmed by team. 8:33:54 ECG and BP/O2 sat monitors applied to patient. 8:33:54 Signed procedure consent form obtained from patient. 8:33:56 Vital chart was started 8:33:59 Baseline sample Acquired. 8:34:09 Rhythm: sinus rhythm , atrial flutter 8:34:11 Full Disclosure recording started 8:34:34 H&P Date Dictated: 08/11/2017 Within 30 days and on chart., H&P Addendum completed by physician on day of procedure. (MUST COMPLETE FOR ALL OUTPATIENTS). 8:34:36 Pre-procedure instructions explained to patient. 8:34:39 Family in patients room. 8:34:41 Patient NPO since Midnight. 8:34:48 Patient allergic to No known allergies 8:34:53 Is the patient allergic to Iodine/contrast media? No. 8:34:54 Was the patient premedicated? Yes 8:34:56 Is patient on blood thinner?No 8:35:07 Previous problem with sedation/anesthesia? No ? 8:35:17 Snore? Yes 8:35:19 Sleep apnea? Yes 8:35:25 Airway obstruction? Yes ? 8:35:37 IV patent on arrival in right hand with 0.9% NaCl at KVO. 8:35:41 Lab results completed and on chart. 8:35:50 Sharps counted by scrub and verified by R.N. 8:35:50 Alarms reviewed by R. N. 8:35:54 Physician paged 8:35:56 Physician arrived 8:36:00 Final Timeout: patient, procedure, and site verified with staff and physician. All members of the team are in agreement. 8:36:00 --------ALL STOP TIME OUT------ 8:36:06 Physical assessment completed. ASA score P 2 - A patient with mild systemic disease as per Dieter Melendez MD. 8:36:12 Sedation plan: TIVA Medication:Propofol 8:36:15 Waldemar Cornejo MD present and monitoring patient for TIVA. 8:36:26 Quick Combo opened to sterile field. 8:36:30 Quick combo pads placed on patients chest and back. 8:37:27 0.9% NaCl 75 ml/hr I.V. was administered by Gilles White RN; Per physician; 8:37:43 Oxygen 5 l/min etCO2 Nasal cannula was administered by Gilles White RN; Per physician; 8:38:06 Hurricaine [place] 1 Sprays P.O. was administered by Gilles White RN; used for procedure; 8:38:13 Dalton Rubin Caseworker Protective Services present for EVELYN. 8:41:11 EVELYN started. 8:41:21 Refer to Anesthesia Notes for Sedation Medications was administered by Gilles White RN; for sedation; 8:48:59 Pt converted to sinus rhythm through vagel response. 8:49:32 EVELYN completed. 8:49:44 Procedure type changed to Cath procedure, Diagnostic procedure, EVELYN 8:50:10 Procedure ended.(Physican Out) 8:50:57 Post-procedure physical assessment completed. ASA score P 2 - A patient with mild systemic disease as per Dieter Melendez MD. 8:51:06 Post procedure rhythm: sinus rhythm 8:51:11 Estimated blood loss: 0 ml 8:51:29 Post procedure instruction explained to patient.Patient verbalizes understanding. 8:56:27 Procedure and supply charges have been captured, reviewed, submitted and are correct. 8:57:24 Procedure Complication : No complications 8:57:27 See physician's report for complete and final results. 9:05:52 Patient transfered to [facility] with Bed. 9:05:55 End room use (Document Last) 9:06:15 Full Disclosure recording stopped Device Usage Item Manufacture Quantity Catalog Hospital Part Current Minimal Lot# / Name Number Charge Number Stock Stock Keith md# Code [place] 1 [id number] Combo Signature Audit Coral Stage Time Signature Unsigned Intra-Procedure 08/12/2017 Elma Bates 9:06:09 AM RT(R) Signatures Monitor : Yelena Forte Signature : RT Date : Time : [facility] [place] [address] [place], [place] [id number]
--- NOTE | ~2017-08-11 | HP ---
PATIENT: NAIN VALENCIA MEDICAL RECORD: [id number] ACCOUNT: [id number] LOCATION:[address] : [birth year] ADMISSION DATE: 08/11/17 HISTORY AND PHYSICAL EXAMINATION HISTORY OF PRESENT ILLNESS: Mr. Valencia is a 77-year-old white male who presents to the clinic today complaining of fatigue, weakness, no energy. He underwent 2-vessel bypass last week at [facility] per Dr. Ma, is now home. His EKG today shows flutter with bradycardia. He is hypotensive with a pressure of 90/50, I suspect due to combinations of his lack of atrial kick and low BP secondary to bradycardia. Discussed with Dr. Calderon and we will admit this patient this evening for further evaluation. He also was a little anemic postop, but his hemoglobin is up to 9.5 at this time. PAST MEDICAL HISTORY: Significant for known coronary artery disease with recent CABG, testicular hypofunction, type 2 diabetes with peripheral neuropathy, hypertension, VÍCTOR. PAST SURGICAL HISTORY: Recent surgeries include CABG. He has had eye surgery and repair of the nasal septum. He has gynecomastia and removal of a lipoma and right testicular epididymis repair. ALLERGIES: None known. HOME MEDICATIONS: Include topiramate 50 mg a day, Januvia 100 mg a day, KCl 20 mEq 1 p.o. daily, Actos 45 mg a day, metoprolol succinate 100/hydrochlorothiazide 12.5 twice a day, magnesium, furosemide 20 a day, fish oil, ferrous sulfate, Plavix 75, Celexa 20, vitamin D, biotin, aspirin, atorvastatin 20, glimepiride 4 mg a day, metformin 1000 mg b.i.d., lisinopril 5 mg a day. FAMILY HISTORY: Significant for cardiovascular disease. SOCIAL HISTORY: The patient has never smoked, does not drink. He is and retired. REVIEW OF SYSTEMS: He denies any chest pain. He has fatigue, no energy, shortness of breath, a little bit of edema. No recent change in bladder or bowel habits. Urinating okay. PHYSICAL EXAMINATION: GENERAL: Pale in appearance, appears moderately ill, but in no distress. HEENT: Sclerae nonicteric. NECK: Soft and supple. HEART: Irregular and bradycardic. LUNGS: Clear. ABDOMEN: Soft. EXTREMITIES: He has got a little bit of edema. SKIN: Reveals healing thoracotomy incision anterior chest wall. IMPRESSION: 1. Status post recent coronary artery bypass graft. 2. Atrial flutter. 3. Bradycardia. 4. Hypotension. HISTORY AND PHYSICAL [id number] NAIN VALENCIA SR PLAN: Admit to telemetry. Discuss with Dr. Calderon. He is on metoprolol, we will hold this and put him on some Betapace 40 mg b.i.d. Hold other antihypertensives. Hold most of his diabetes meds and supplement with sliding scale. May require cardioversion. See orders for rest of plan. TRANSINT:[id number] Voice Confirmation ID: [id number] DOCUMENT ID: [id number] JENNIFER QUINTERO DO at 1625 CC: [id number] DICTATION DATE: 08/11/172014 CHIEF INFORMATION SECURITY OFFICER: 08/11/17 2103 ADM IN [facility] [address] [place] [address]
--- NOTE | ~2017-08-11 | EC ---
PATIENT:NAIN VALENCIA SR DATE OF SERVICE: 08/11/17 SEX: M MEDICAL RECORD: [id number] DATE OF : 44 LOCATION:D. D.211 AGE OF PATIENT: 77 ADMISSION DATE: 08/11/17 REFERRING PHYSICIAN: INTERPRETING PHYSICIAN: MELODIE HERRING MD ECHOCARDIOGRAM REPORT ECHO CHARGES 5 ECHO LIMITED Date: 08/12 CLINICAL DIAGNOSIS: CAD/POST RECENT CABG/COVERTED AFIB ECHOCARDIOGRAPHIC MEASUREMENTS (adult normal given) AC root (d.<3.7cm) 3.7 cm LV Septum d (<1.2 cm> 2.0 cm Valve Excursion 1.3 cm LV Septum (systole) 2.3 cm Left Atria (s.<4.0cm> 3.7 cm LVPW d(<1.2cm) 1.8 cm RV (d.<2.3cm) 3.9 cm LVPW (sytole) 1.8 cm LV diastole(<5.6CM) 5.6 cm MV E-F(>70mm/sec) cm LV systole 4.2 cm LVOT Diameter cm MV exc.(>10mm) 1.9 cm Est.ejection fraction (50-75%) % DOPPLER: LVIT cm/sec A cm/sec E cm/sec LA cm/sec RVSP mmHg LVOT cm/sec AOP1/2T m/s Asc. Ao cm/sec RVOT cm/sec RA cm/sec PA cm/sec AV Gradient Peak mmHg AV Mean mmHg AV Area cm MV Gradient Peak mmHg MV Mean mmHg MV Area cm COMMENTS: Boat Rental Clerk: Higinio LAINEZ Junior Systems Engineer: Kandace Herring TAPE# PACS Pericardial Effusion N DATE OF SERVICE: 08/12/2017 PROCEDURE: Transthoracic echocardiogram. FINDINGS: 1. Left ventricle has left ventricular hypertrophy. The patient is in his normal sinus rhythm. Ejection fraction 55% to 60%. 2. The left atrium is normal. 3. The aortic valve is difficult to visualize, but overall appears to have normal structure. ECHOCARDIOGRAM REPORT [id number] NAIN VALENCIA 4. The mitral valve has normal to mild mitral regurgitation. 5. Tricuspid valve is normal. 6. The right ventricle is mildly dilated as well as the right atrium, but normal function. In conclusion, the patient is status post CABG showing no evidence of major valvular abnormalities, wall motion abnormalities or significant effusion. Aortic valve is not well visualized, but by Doppler evaluation there is no evidence of stenosis or significant regurgitation. TRANSINT:[id number] Voice Confirmation ID: [id number] DOCUMENT ID: [id number] MELODIE HERRING MD at 1120 CC: [id number] DICTATION DATE: 08/12/17 1543 OR DIRECTOR: 08/12/17 1602 DIS IN 08/13/17 [place] [id number] [place] [id number]
[~2017-08-11 16:34] MED LIST changes: +CENTRUM SILVER1 TA1 PO; +FUROSEMIDE20 MG PO; +KLOR-CON 1010 MEQ PO; +LOPRESSOR25 MG PO; +PLAVIX75 MG PO
[2017-08-11 17:47] VITALS: BP 118/52; BMI 31.6
[2017-08-11 18:14] LABS: BASOPHILS 0.2 % (0-2); EOSINOPHILS 1.1 % (0-7); HEMATOCRIT 27.3 % (42.0-54.0); HEMOGLOBIN 8.9 g/dL (13.5-17.5); IMMATURE GRANULOCYTES 1.9 % (0-5); LYMPHOCYTES 14.8 % (15-50); MCH 28.8 pg (26.0-34.0); MCHC 32.6 g/dL (31.0-37.0); MCV 88.3 fL (80.0-100.0); MEAN PLATELET VOLUME 10.2 fL (7.4-10.4); MONOCYTES 9.7 % (2-11); NEUTROPHILS 72.3 % (40-80); RBC 3.09 10x6/uL (4.20-6.10); RDW 13.8 % (11.5-14.5); WBC 13.1 10x3/uL (4.8-10.8)
[2017-08-11 18:15] LABS: ALBUMIN 2.4 g/dL (3.4-5.0); ANION GAP 11.3 mmol/L (8-16); BILIRUBIN - TOTAL 0.27 mg/dL (0.2-1.3); CREATININE - SERUM 1.3 mg/dL (0.6-1.3); PLATELET COUNT 567 10x3/uL (130-400); POTASSIUM - SERUM 4.3 mmol/L (3.5-5.1); PROTEIN - SERUM 6.4 g/dL (6.4-8.2)
[2017-08-11 18:25] LABS: THYROID STIMULATING HORMONE 1.65 uIU/mL (0.36-3.74)
[2017-08-11 21:08] VITALS: BP 121/70
[2017-08-11 22:05] LABS: APPEARANCE CLEAR (CLEAR); BILIRUBIN NEGATIVE (NEGATIVE); COLOR YELLOW (YELLOW); GLUCOSE NEGATIVE (NEGATIVE); KETONE NEGATIVE (NEGATIVE); NITRITE NEGATIVE (NEGATIVE); PROTEIN NEGATIVE (NEGATIVE); UROBILINOGEN NORMAL (NORMAL)
[2017-08-12 01:39] VITALS: BP 111/50
[2017-08-12 06:14] VITALS: BP 144/54
[2017-08-12 08:51] VITALS: BP 139/68
[2017-08-12 12:04] VITALS: BP 127/73
[2017-08-12 13:15] VITALS: Ht 177.8 cm; Wt 100.0 kg
[2017-08-12 16:22] VITALS: BP 167/63
[2017-08-12 22:02] VITALS: BP 165/59
[2017-08-13 01:02] VITALS: BP 140/63
[2017-08-13 05:39] VITALS: BP 152/57
[2017-08-13 07:01] LABS: BASOPHILS 0.2 % (0-2); EOSINOPHILS 1.4 % (0-7); HEMATOCRIT 26.3 % (42.0-54.0); HEMOGLOBIN 8.5 g/dL (13.5-17.5); IMMATURE GRANULOCYTES 1.5 % (0-5); LYMPHOCYTES 14.5 % (15-50); MCH 28.4 pg (26.0-34.0); MCHC 32.3 g/dL (31.0-37.0); MEAN PLATELET VOLUME 9.7 fL (7.4-10.4); MONOCYTES 10.4 % (2-11); PLATELET COUNT 568 10x3/uL (130-400); RBC 2.99 10x6/uL (4.20-6.10); RDW 14.2 % (11.5-14.5); WBC 12.6 10x3/uL (4.8-10.8)
[2017-08-13 07:19] LABS: CALC OSMOLALITY 276 mosm/kg (275-300); CALCIUM 8.8 mg/dL (8.5-10.1); CARBON DIOXIDE 27.7 mmol/L (21.0-32.0); CHLORIDE - SERUM 102 mmol/L (98-107); GLUCOSE 171 mg/dL (74-106); POTASSIUM - SERUM 4.4 mmol/L (3.5-5.1); SODIUM 137 mmol/L (136-145); eGFR NON AFRICAN AMERICAN 77 mL/min (90-120)
[2017-08-13 07:31] LABS: UREA NITROGEN 11 mg/dL (7-18)
[2017-08-13 08:04] VITALS: BP 163/70
[2017-08-13 12:46] VITALS: BP 147/46
== END 2017-08-13 14:38 | disposition home or self-care (01) | DRG 315 ==
LOC: D.M2 16:34
PROVIDERS: Family Medicine; Internal Medicine Nephrology
DX: I95.9 Hypotension, unspecified (principal); I48.92 Unspecified atrial flutter; N17.9 Acute kidney failure, unspecified; R00.1 Bradycardia, unspecified; E11.40 Type 2 diabetes mellitus with diabetic neuropathy, unspecified; I10 Essential (primary) hypertension; G47.33 Obstructive sleep apnea (adult) (pediatric); I25.10 Atherosclerotic heart disease of native coronary artery without angina pectoris; E78.5 Hyperlipidemia, unspecified; F32.9 Major depressive disorder, single episode, unspecified; Z95.1 Presence of aortocoronary bypass graft; Z87.891 Personal history of nicotine dependence

== ENCOUNTER 2017-08-20 02:20 | Inpatient (IN) | payer MEDICARE, OTHER ==
[2017-08-20] VITALS (7 sets, daily range): BP systolic 131–142; BP diastolic 53–66; Ht 177.8 cm; Wt 98.6 kg
[~2017-08-20] VITALS: Ht 177.8 cm; Wt 98.6 kg
--- NOTE | ~2017-08-20 | CN ---
PATIENT NAME:NAIN VALENCIA SR MEDICAL RECORD: [id number] : 44 LOCATION:D.MS [address] ADMIT DATE: 08/20/17 ACCOUNT: [id number] CONSULTING PHYSICIAN: MARK CAMPUZANO MD REFERRING PHYSICIAN: HEATHER MÁRQUEZ MD DATE OF CONSULTATION: 08/20/2017 CONSULT REQUESTING PHYSICIAN: Heather Márquez MD REASON FOR CONSULTATION: Shortness of breath, acute cough, dyspnea, and orthopnea. HISTORY OF PRESENT ILLNESS: Mr. Valencia is a 77-year-old gentleman who underwent CABG on 08/02/2017. According to the patient, for the last few days, he has worsening shortness of breath, orthopnea, and PND. He is coughing and the cough is productive with white to yellowish color sputum production. He has a significant posterior nasal drip with cough with almost every breath. REVIEW OF SYSTEMS: As in history of present illness. PAST MEDICAL HISTORY: 1. Coronary artery disease. 2. Obstructive sleep apnea, on CPAP machine. 3. History of pneumonia. 4. Diabetes mellitus. 5. Bilateral hearing loss. 6. Migraine headache. PAST SURGICAL HISTORY: 1. He is status post CABG on 08/02. 2. Cataract surgery. 3. Right testicular surgery. 4. T&A. ALLERGIES: No known drug allergy. PRESENT MEDICATIONS: [employer] is reviewed. PERSONAL AND SOCIAL HISTORY: The patient is a nonsmoker, nondrinker. FAMILY HISTORY: Significant for cardiovascular diseases. PHYSICAL EXAMINATION: GENERAL: Now, the patient is lying comfortably in bed. He is not in acute distress. VITAL SIGNS: The blood pressure is 142/66, pulse is 73, respiration is 24, temperature 98.4, and SPO2 is 95% on 1 liter nasal cannula. HEENT: Conjunctivae pink. Sclerae not icteric. NECK: Supple, no JVD. CHEST: The chest excursion is minimal and bilateral crackles. No wheezing. HEART: Rhythm regular, normal sound, no murmur. ABDOMEN: Soft, bowel sounds present. No hepatosplenomegaly. RECTAL: Deferred. EXTREMITIES: No cyanosis, no clubbing, no pedal edema. SKIN: Warm, normal turgor. CONSULT REPORT [id number] NAIN VALENCIA SR CENTRAL NERVOUS SYSTEM: The patient is awake and alert. There is no obvious cranial nerve abnormality. The gait was not tested. IMAGING: CTA of the chest: There is no pulmonary embolism. There is bilateral pleural effusion. There is mild cardiomegaly. There is emphysematous changes. OTHER LABORATORY DATA: CBC: WBC 11.8, hemoglobin 9.2, hematocrit 28.7, platelet count 482. BUN is 14, creatinine is 1.2. IMPRESSION: 1. Acute hypoxic respiratory failure. 2. Acute cough. 3. Tracheobronchitis, rule out pneumonia. 4. Orthopnea and paroxysmal nocturnal dyspnea. 5. Allergic rhinitis. 6. Bilateral pleural effusion. 7. Congestive heart failure with elevated BNP, possible chronic systolic dysfunction. 8. Obstructive sleep apnea. 9. Coronary artery disease, status post CABG. RECOMMENDATION: 1. Discontinue Zithromax and Rocephin. I will start him on cefepime and Levaquin for hospital community-acquired possible pneumonia gram-negative anthony. 2. Continue Tussionex cough syrup. 3. Start on budesonide nebulizer. 4. Albuterol and ipratropium nebulizer. 5. Start on Flonase nasal spray. 6. Wendy 1 tablet b.i.d. 7. Start her on Lasix. 8. I will suggest to discontinue Zestril with the patient cough. Follow up labs and chest radiograph. Dr. Márquez, thank you for involving me in the care of Mr. Valencia. TRANSINT:[id number] Voice Confirmation ID: [id number] DOCUMENT ID: [id number] MARK CAMPUZANO MD at 1348 CC: [id number] DICTATION DATE: 08/20/17 1634 POLISHING MACHINE TENDER: 08/20/17 1719 DIS IN 08/24/17 [facility] [address] [place] [address]
[2017-08-20 03:31] LABS: BASOPHILS 0.3 % (0-2); EOSINOPHILS 1.5 % (0-7); HEMATOCRIT 28.7 % (42.0-54.0); HEMOGLOBIN 9.2 g/dL (13.5-17.5); IMMATURE GRANULOCYTES 0.4 % (0-5); LYMPHOCYTES 11.1 % (15-50); MCHC 32.1 g/dL (31.0-37.0); MCV 87.5 fL (80.0-100.0); MEAN PLATELET VOLUME 9.5 fL (7.4-10.4); MONOCYTES 13.9 % (2-11); NEUTROPHILS 72.8 % (40-80); PLATELET COUNT 582 10x3/uL (130-400); RBC 3.28 10x6/uL (4.20-6.10); WBC 11.8 10x3/uL (4.8-10.8)
[2017-08-20 03:35] LABS: APTT 48.2 SECONDS (22.8-39.4); INR 1.15 (0.85-1.17); PROTIME 14.3 SECONDS (11.6-15.0)
[2017-08-20 03:36] LABS: D-DIMER-QUANTITATIVE 3.49 ug/mLFEU (0.20-0.54)
[2017-08-20 03:39] LABS: ALBUMIN 2.6 g/dL (3.4-5.0); ANION GAP 12.7 mmol/L (8-16); BILIRUBIN - TOTAL 0.2 mg/dL (0.2-1.3); CALCIUM 8.7 mg/dL (8.5-10.1); CARBON DIOXIDE 26.3 mmol/L (21.0-32.0); CREATININE - SERUM 1.2 mg/dL (0.6-1.3); PROTEIN - SERUM 6.4 g/dL (6.4-8.2)
[2017-08-20 03:48] LABS: TROPONIN-I 0.017 ng/mL (0.000-0.060)
[2017-08-20 06:33] LABS: CKMB 1.1 U/L (0.0-3.6); CREATINE KINASE 42 UL (21-232)
[2017-08-20 06:34] LABS: TROPONIN-I < 0.017 ng/mL (0.000-0.060)
[2017-08-20 12:19] LABS: CKMB 1.2 U/L (0.0-3.6); CREATINE KINASE 46 UL (21-232)
[2017-08-20 12:20] LABS: TROPONIN-I < 0.017 ng/mL (0.000-0.060)
[2017-08-20 17:20] LABS: CKMB 1.1 U/L (0.0-3.6); CREATINE KINASE 57 UL (21-232)
[2017-08-20 17:21] LABS: TROPONIN-I 0.016 ng/mL (0.000-0.060)
[2017-08-21] VITALS: BP 109/52
[2017-08-21 04:00] VITALS: BP 123/45
[2017-08-21 06:40] LABS: HEMATOCRIT 27.2 % (42.0-54.0); HEMOGLOBIN 8.5 g/dL (13.5-17.5); MCH 27.3 pg (26.0-34.0); MCHC 31.3 g/dL (31.0-37.0); MCV 87.5 fL (80.0-100.0); MEAN PLATELET VOLUME 9.7 fL (7.4-10.4); PLATELET COUNT 545 10x3/uL (130-400); RBC 3.11 10x6/uL (4.20-6.10); RDW 14.2 % (11.5-14.5)
[2017-08-21 06:54] LABS: ALBUMIN 2.5 g/dL (3.4-5.0); ANION GAP 10.5 mmol/L (8-16); BILIRUBIN - TOTAL 0.22 mg/dL (0.2-1.3); CALCIUM 8.5 mg/dL (8.5-10.1); CARBON DIOXIDE 27.8 mmol/L (21.0-32.0); CREATININE - SERUM 1.1 mg/dL (0.6-1.3); POTASSIUM - SERUM 4.3 mmol/L (3.5-5.1); PROTEIN - SERUM 5.8 g/dL (6.4-8.2)
[2017-08-21 08:08] LABS: EOSINOPHILS 2 % (0-7); LYMPHOCYTES 10 % (15-50); MONOCYTES 21 % (2-11); NEUTROPHILS 63 % (40-80); PLATELET ESTIMATE INCREASED
[2017-08-21 08:43] VITALS: BP 121/51
[2017-08-21 11:38] VITALS: BP 123/48
[2017-08-21 15:42] VITALS: BP 116/69
[2017-08-21 20:13] VITALS: BP 120/49
[2017-08-22 04:00] VITALS: BP 118/48
[2017-08-22 05:23] LABS: BASOPHILS 0.3 % (0-2); EOSINOPHILS 4.1 % (0-7); HEMATOCRIT 26.1 % (42.0-54.0); HEMOGLOBIN 8.4 g/dL (13.5-17.5); IMMATURE GRANULOCYTES 0.3 % (0-5); LYMPHOCYTES 20.4 % (15-50); MCH 28.1 pg (26.0-34.0); MCHC 32.2 g/dL (31.0-37.0); MCV 87.3 fL (80.0-100.0); MEAN PLATELET VOLUME 9.3 fL (7.4-10.4); MONOCYTES 23.4 % (2-11); NEUTROPHILS 51.5 % (40-80); PLATELET COUNT 449 10x3/uL (130-400); RBC 2.99 10x6/uL (4.20-6.10); RDW 14.4 % (11.5-14.5); WBC 6.1 10x3/uL (4.8-10.8)
[2017-08-22 05:28] LABS: ALBUMIN 2.3 g/dL (3.4-5.0); ANION GAP 10.9 mmol/L (8-16); BILIRUBIN - TOTAL 0.19 mg/dL (0.2-1.3); CALCIUM 8.2 mg/dL (8.5-10.1); CARBON DIOXIDE 29.1 mmol/L (21.0-32.0); CREATININE - SERUM 1.2 mg/dL (0.6-1.3); PROTEIN - SERUM 5.9 g/dL (6.4-8.2)
[2017-08-22 08:25] VITALS: BP 132/64
[2017-08-22 11:49] VITALS: BP 125/52
[2017-08-22 16:43] VITALS: BP 129/59
[2017-08-22 20:00] VITALS: BP 119/49
[2017-08-23 00:08] VITALS: BP 118/74
[2017-08-23 04:00] VITALS: BP 135/60
[2017-08-23 07:11] LABS: BASOPHILS 0.3 % (0-2); EOSINOPHILS 4.9 % (0-7); HEMATOCRIT 27.5 % (42.0-54.0); HEMOGLOBIN 8.7 g/dL (13.5-17.5); IMMATURE GRANULOCYTES 0.2 % (0-5); LYMPHOCYTES 15.9 % (15-50); MCH 27.7 pg (26.0-34.0); MCHC 31.6 g/dL (31.0-37.0); MCV 87.6 fL (80.0-100.0); MEAN PLATELET VOLUME 9.5 fL (7.4-10.4); NEUTROPHILS 60.7 % (40-80); PLATELET COUNT 465 10x3/uL (130-400); RBC 3.14 10x6/uL (4.20-6.10); RDW 14.6 % (11.5-14.5); WBC 6.4 10x3/uL (4.8-10.8)
[2017-08-23 07:37] LABS: ALBUMIN 2.5 g/dL (3.4-5.0); ANION GAP 10.6 mmol/L (8-16); BILIRUBIN - TOTAL 0.21 mg/dL (0.2-1.3); CALCIUM 8.9 mg/dL (8.5-10.1); CARBON DIOXIDE 30.5 mmol/L (21.0-32.0); CREATININE - SERUM 1.1 mg/dL (0.6-1.3); MAGNESIUM - SERUM 1.9 mg/dL (1.8-2.4); PHOSPHOROUS 3.4 mg/dL (2.5-4.9); POTASSIUM - SERUM 4.1 mmol/L (3.5-5.1); PROTEIN - SERUM 6.3 g/dL (6.4-8.2)
[2017-08-23 08:11] VITALS: BP 137/65
[2017-08-23 13:04] VITALS: BP 129/61
[2017-08-23 16:55] VITALS: BP 125/56
[2017-08-23 20:00] VITALS: BP 135/63
[2017-08-24] VITALS: BP 139/54
[2017-08-24 04:00] VITALS: BP 92/59
[2017-08-24 05:00] LABS: BASOPHILS 0.3 % (0-2); EOSINOPHILS 3.7 % (0-7); HEMOGLOBIN 8.6 g/dL (13.5-17.5); IMMATURE GRANULOCYTES 0.2 % (0-5); LYMPHOCYTES 25.5 % (15-50); MCH 26.7 pg (26.0-34.0); MCHC 30.7 g/dL (31.0-37.0); MEAN PLATELET VOLUME 9.6 fL (7.4-10.4); MONOCYTES 14.8 % (2-11); NEUTROPHILS 55.5 % (40-80); PLATELET COUNT 425 10x3/uL (130-400); RBC 3.22 10x6/uL (4.20-6.10); RDW 14.4 % (11.5-14.5); WBC 6.5 10x3/uL (4.8-10.8)
[2017-08-24 05:31] LABS: ALBUMIN 2.6 g/dL (3.4-5.0); ANION GAP 7.3 mmol/L (8-16); BILIRUBIN - TOTAL 0.2 mg/dL (0.2-1.3); CALCIUM 9.1 mg/dL (8.5-10.1); CARBON DIOXIDE 33.6 mmol/L (21.0-32.0); CREATININE - SERUM 1.1 mg/dL (0.6-1.3); POTASSIUM - SERUM 3.9 mmol/L (3.5-5.1); PROTEIN - SERUM 6.3 g/dL (6.4-8.2)
[2017-08-24 08:17] VITALS: BP 141/56
[2017-08-24 12:57] VITALS: BP 106/49
[2017-08-24] MEDS ORDERED: LEVAQUIN750 MG PO (14:26)
[2017-08-24] MEDS ORDERED: FUROSEMIDE20 MG PO (14:27)
[2017-08-24] MEDS ORDERED: OMNICEF300 MG PO (14:27)
[2017-08-24] MEDS ORDERED: PROMETHAZINE W473 M1 PO (14:29)
[2017-08-24] MEDS ORDERED: MUCINEX DM ER1 EAC1 PO (14:29)
== END 2017-08-24 15:47 | disposition home or self-care (01) | DRG 193 ==
LOC: D.ER 02:20 → D.MS 05:19 → D.M2 05:19 → D.MS 08-24 15:47
PROVIDERS: Emergency Medicine; Family Medicine
DX: J18.9 Pneumonia, unspecified organism (principal); I50.23 Acute on chronic systolic (congestive) heart failure; J96.01 Acute respiratory failure with hypoxia; E43 Unspecified severe protein-calorie malnutrition; D62 Acute posthemorrhagic anemia; E87.1 Hypo-osmolality and hyponatremia; Y95 Nosocomial condition; E11.9 Type 2 diabetes mellitus without complications; E78.5 Hyperlipidemia, unspecified; I25.10 Atherosclerotic heart disease of native coronary artery without angina pectoris; G47.33 Obstructive sleep apnea (adult) (pediatric); Z68.31 Body mass index [BMI] 31.0-31.9, adult; Z95.1 Presence of aortocoronary bypass graft

== ENCOUNTER → 2017-10-05 10:40 | Outpatient (CLI) | payer MEDICARE, OTHER ==
[2017-08-20 19:41] VITALS: BMI 31.2
[~2017-10-05 10:40] MED LIST changes: +LEVAQUIN750 MG PO; +MUCINEX DM ER1 EAC1 PO; +OMNICEF300 MG PO; +PROMETHAZINE W473 M1 PO
== END | disposition home or self-care (01) ==
LOC: D.RAD 10:00
DX: J91.8 Pleural effusion in other conditions classified elsewhere (principal); D64.9 Anemia, unspecified

== ENCOUNTER → 2019-03-16 10:39 | Outpatient (CLI) | payer MEDICARE, OTHER ==
[2017-08-20 19:41] VITALS: BMI 31.2
--- NOTE | 2019-03-19 12:18 | EC ---
PATIENT:NAIN VALENCIA SR DATE OF SERVICE: 03/16/19 SEX: M MEDICAL RECORD: [id number] DATE OF : 44 LOCATION:[facility] AGE OF PATIENT: 78 ADMISSION DATE: 03/16/19 REFERRING PHYSICIAN: INTERPRETING PHYSICIAN: GIANFRANCO SANTOS MD ECHOCARDIOGRAM REPORT ECHO CHARGES 4 ECHO COMPLETE Date: 03/16/19 CLINICAL DIAGNOSIS: BRADYCARDIA HX CAD/CABG/HTN/AFIB, ASSESS EF AND VALVES,MR ECHOCARDIOGRAPHIC MEASUREMENTS (adult normal given) AC root (d.<3.7cm) 3.4 cm LV Septum d (<1.2 cm> 1.6 cm Valve Excursion 1.9 cm LV Septum (systole) 1.9 cm Left Atria (s.<4.0cm> 3.6 cm LVPW d(<1.2cm) 1.8 cm RV (d.<2.3cm) 3.4 cm LVPW (sytole) 2.1 cm LV diastole(<5.6CM) 5.9 cm MV E-F(>70mm/sec) cm LV systole 3.8 cm LVOT Diameter 1.8 cm MV exc.(>10mm) 1.6 cm Est.ejection fraction (50-75%) % DOPPLER: LVIT cm/sec A 90.0 cm/sec E 98.0 cm/sec LA cm/sec RVSP 16 mmHg LVOT 89 cm/sec AOP1/2T m/s Asc. Ao 157 cm/sec RVOT 71 cm/sec RA cm/sec PA 91 cm/sec AV Gradient Peak 9.90 mmHg AV Mean 5.18 mmHg AV Area 1.4 cm MV Gradient Peak 4.67 mmHg MV Mean 2.12 mmHg MV Area cm COMMENTS: Rouge Miller: 2 MERRITT LAINEZ Optical Worker: 3 Dr. Carnes TAPE# PACS Pericardial Effusion N DATE OF SERVICE: Adequate 2D, color flow imaging, spectral Doppler, and M-mode. LVH is present. LV internal dimensions are normal. Wall motion is normal. EF is greater than or equal to 55%. Aortic valve is sclerotic. There is no evidence of stenosis by Doppler interrogation. Left atrium is normal at 3.6. Mitral valve shows no prolapse. Mild MR. Right-sided chambers grossly normal. Trace TR. ECHOCARDIOGRAM REPORT [id number] NAIN VALENCIA SR TRANSINT:[id number] Voice Confirmation ID: [id number] DOCUMENT ID: [id number] GIANFRANCO SANTOS MD at 1218 CC: [id number] DICTATION DATE: 03/16/19 1358 METER TESTER: 03/16/19 2156 DEP CLI 03/16/19 [place] [id number] [place] [id number]
== END | disposition home or self-care (01) ==
LOC: D.HCCECHO 10:39
PROVIDERS: ATTEND Internal Medicine Interventional Cardiology
DX: I25.810 Atherosclerosis of coronary artery bypass graft(s) without angina pectoris (principal)